=== PATIENT | female | born 1985 | race Caucasian/White ===

== ENCOUNTER → 2023-12-20 13:53 | Outpatient (REF) | payer OTHER, SELFPAY | LOC: HWEVLT 13:53 | PROVIDERS: ATTENDING PHYSICIAN Radiology Vascular & Interventional Radiology | DX: I83.893 Varicose veins of bilateral lower extremities with other complications (principal) | CPT/HCPCS: 93970 ==

== ENCOUNTER → 2024-03-01 12:56 | Outpatient (REF) | payer OTHER, SELFPAY | LOC: HWEVLT 12:56 | PROVIDERS: ATTENDING PHYSICIAN Radiology Diagnostic Radiology | DX: I83.892 Varicose veins of left lower extremity with other complications (principal) | CPT/HCPCS: 36478; C1769 ==

== ENCOUNTER → 2024-03-15 11:23 | Outpatient (REF) | payer OTHER, SELFPAY | LOC: HWEVLT 11:23 | PROVIDERS: ATTENDING PHYSICIAN Radiology Vascular & Interventional Radiology | DX: I83.892 Varicose veins of left lower extremity with other complications (principal) | CPT/HCPCS: 93971 ==

== ENCOUNTER → 2024-03-29 09:29 | Outpatient (REF) | payer OTHER, SELFPAY | LOC: HWEVLT 09:29 | PROVIDERS: ATTENDING PHYSICIAN Radiology Diagnostic Radiology | DX: I83.891 Varicose veins of right lower extremity with other complications (principal) | CPT/HCPCS: 36478; C1769 ==

== ENCOUNTER → 2024-04-10 11:35 | Outpatient (REF) | payer OTHER, SELFPAY | LOC: HWEVLT 11:35 | PROVIDERS: ATTENDING PHYSICIAN Radiology Vascular & Interventional Radiology | DX: I83.891 Varicose veins of right lower extremity with other complications (principal) | CPT/HCPCS: 93971 ==